=== PATIENT | female | born 1960 | race Caucasian/White ===

== ENCOUNTER → 2016-07-22 | Outpatient (CLI) | payer OTHER ==
--- NOTE | 2016-07-22 13:58 | PCVCIMAG ---
APPROVED REPORT Study performed: 07/22/2016 12:55:14 EXAM: Comprehensive 2D, Doppler, and color-flow Echocardiogram Patient Location: Echo lab Status: stat Indications Dyspnea peripheral edema 2D Dimensions LVEF(%): 21.57 (>50%) IVSd: 6.74 (7-11mm)LVOT Diam: 20.68 (18-24mm) LVDd: 65.66 mm PWd: 8.92 (7-11mm)Ascending Ao: 27.71 (22-36mm) LVDs: 59.02 (25-40mm) Left Atrium: 44.91 (27-40mm) Aortic Root: 23.15 mm LV Single Plane 4CH: 12.42 % LV Single Plane 2CH: 22.33 %Figueroa's LVEF: 17.38 % Biplane EF: 16.9 % Volumes Left Atrial Volume (Systole) Single Plane 4CH: 62.33 mLSingle Plane 2CH: 94.17 mL LA ESV Index: 47.00 mL/m2 Aortic Valve AoV Peak Darren.: 1.15 m/s AO Peak Gr.: 5.64 mmHgLVOT Max P.42 mmHg LVOT Max V: 0.54 m/s JOSUE Vmax: 1.57 cm2 AI Vmax: 4.71 m/s AI [place]: 3.62 m/s2 AI PHT: 394.86 ms Mitral Valve E/A Ratio: 1.9 MV Decel. Time: 105.07 ms MV E Max Darren.: 1.06 m/s MV A Darren.: 0.57 m/s MV Max Darren.: 5.02 m/s MV Mean Darren.: 3.79 m/s IVRT: 72.66 ms Pulmonary Valve PV Peak Darren.: 0.65 m/sPV Peak Gr.: 1.67 mmHg Pulmonary Vein P Vein S: 0.22 m/sP Vein A: 0.36 m/s P Vein D: 0.47 m/sP Vein A Dur.: 83.0 msec P Vein S/D Ratio: 0.47 Tricuspid Valve TR Peak Darren.: 3.21 m/s TR Peak Gr.: 41.14 mmHg TV Vmax: 0.56 m/s Left Ventricle Left ventricle is severely dilated. There is global severe hypokinesis of the left ventricle. There is normal left ventricular wall thickness. Left ventricular ejection fraction is severely decreased. No left ventricle thrombus noted on this study. LVEF is 15-20%. Right Ventricle Right ventricle is mild to moderately dilated. Atria Left atrium is mildly dilated. Right atrium is mildly dilated. Aortic Valve The aortic valve is mildly sclerotic Moderate aortic regurgitation. There is no aortic valvular stenosis. Mitral Valve The mitral valve is normal in structure. Moderately severe mitral regurgitation. No evidence of mitral valve stenosis. Tricuspid Valve The tricuspid valve is normal in structure. Moderate to severe tricuspid regurgitation with a PA pressure of 56mmHg. Pulmonic Valve The pulmonary valve is normal in structure. Mild to moderate pulmonic regurgitation. Great Vessels The aortic root is normal in size. The ascending aorta is normal in size. The inferior vena cava is moderately dilated with no inspiratory collapse. Pericardium Smallr pericardial effusion. Ascites is present. Moderate pleural effusion. <Conclusion> Left ventricular ejection fraction is severely decreased. There is global severe hypokinesis of the left ventricle. LVEF is 15-20%. Right ventricle is mild to moderately dilated. Both atria are dilated The aortic valve is mildly sclerotic. No stenosis. Moderate aortic regurgitation. The mitral valve is normal in structure. Moderately severe mitral regurgitation. Pulmonary arter pressure of 55mmHg Small pericardial effusion
== END | disposition home or self-care (01) ==
LOC: PCVCIMAG 12:45
PROVIDERS: ATTEND Internal Medicine
DX: I08.3 Combined rheumatic disorders of mitral, aortic and tricuspid valves (principal); E78.5 Hyperlipidemia, unspecified; I10 Essential (primary) hypertension
CPT/HCPCS: 36415; 80061; 93005; 93306

== ENCOUNTER → 2016-09-23 | Outpatient (CLI) | payer OTHER ==
--- NOTE | 2016-09-23 17:00 | PCVCINTER ---
APPROVED REPORT Patient Details Patient Status: Out-Patient Room #: 2 The patient is a 55 year-old Female Event Personnel Jolynn Oleary MD, Ayush Jimenez RN, Jessica Camejo RT(R)(), Jihan Stephen RT(R) Risk Factors Arterial HypertensionDysplipidemia (Type: 0), Family History, Last Creatanine 0.9Tobacco History (Never) Previous Procedures/Diagnoses Previous CHF, Hypertension, CHF Procedure Narrative The patient was brought electively to the Cardiac Catheterization Laboratory and was prepped and draped in a sterile manner. The right femoral was infiltrated with 1% Lidocaine subcutaneous anesthesia. A 6 fr sheath was inserted into the right femoral artery. Coronary angiography was performed using coronary diagnostic catheters. The right coronary system was accessed and visualized with a Diagnostic JR4 catheter. The left coronary system was accessed and visualized with a Diagnostic JL4 catheter. The left ventricle was accessed and visualized with a Diagnostic Angled pigtail catheter. Left ventricular/Aortic Valve gradient assessed via catheter pullback. Left ventriculogram was performed in BORGES projection. Closure device was deployed with a 6 Fr Mynx. The patient tolerated the procedure well and there were no complications associated with the procedure. There was no hematoma. Coronary Angiography The patient's coronary anatomy is right dominant. [place] Artery Percent Stenosis Left Main: 0 % Prox LAD: 0 % Mid/Distal LAD: 0 % Circumflex: 0 % RCA: 0 % Ramus: % Left Ventriculography The left ventricle is mildly dilated in size with contractility. The left ventricular ejection fraction is estimated to be 30-35%. Left ventricular wall motion abnormalities are not present. There is no mitral insufficiency. Hemodynamics The aortic pressure is 96/33 mmHg with a mean of 61 mmHg. The left ventricular pressure is 110/42 mmHg with a mean of 53 mmHg. Conclusion 1. Moderate global left ventricular dysfunction. EF 30-35% 2. Normal left main 3. Normal coronary vasculature. Right coronary dominant circulation Recommendations Aggressive Medical Therapy
== END | disposition home or self-care (01) ==
LOC: PCVCINTER 11:03
PROVIDERS: ATTEND Internal Medicine
DX: I11.0 Hypertensive heart disease with heart failure (principal); I50.9 Heart failure, unspecified; E78.5 Hyperlipidemia, unspecified
CPT/HCPCS: 93458; 99152; 99153; C1725; C1760; C1769; C1894

== ENCOUNTER → 2016-11-04 | Outpatient (CLI) | payer OTHER ==
--- NOTE | 2016-11-04 15:10 | PCVCIMAG ---
APPROVED REPORT Study performed: 11/04/2016 13:44:13 EXAM: Comprehensive 2D, Doppler, and color-flow Echocardiogram Patient Location: Echo lab Status: routine BSA: 1.63 HR: 75 bpmBP: 110/70 mmHg Rhythm: NSR Other Information Study Quality: Good Indications Congestive Heart Failure Cardiomyopathy Hypertension/HDD 2D Dimensions LVEF(%): 30.57 (>50%) IVSd: 6.75 (7-11mm)LVOT Diam: 20.34 (18-24mm) LVDd: 62.79 mm PWd: 7.02 (7-11mm) LVDs: 53.55 (25-40mm) Left Atrium: 39.56 (27-40mm) Aortic Root: 22.89 mm LV Single Plane 4CH: 39.73 % LV Single Plane 2CH: 39.98 %Figueroa's LVEF: 39.85 % Volumes Left Atrial Volume (Systole) Single Plane 4CH: 39.64 mLSingle Plane 2CH: 40.68 mL Biplane LA Volume: 42.00 mLLA ESV Index: 26.00 mL/m2 Aortic Valve AoV Peak Darren.: 1.43 m/s AO Peak Gr.: 8.19 mmHgLVOT Max P.25 mmHg LVOT Max V: 0.75 m/s JOSUE Vmax: 1.70 cm2 AI Vmax: 4.49 m/s AI [place]: 2.65 m/s2 AI PHT: 494.82 ms Mitral Valve E/A Ratio: 0.6 MV Decel. Time: 209.11 ms MV E Max Darren.: 0.54 m/s MV A Darren.: 0.88 m/s IVRT: 107.27 ms TDI E/Lateral E': 7.71E/Medial E': 9.00 Medial E' Darren.: 0.06 m/s Lateral E' Darren.: 0.07 m/s Pulmonary Valve PV Peak Darren.: 1.15 m/sPV Peak Gr.: 5.33 mmHg Pulmonary Vein P Vein S: 0.43 m/sP Vein A: 0.30 m/s P Vein D: 0.42 m/sP Vein A Dur.: 86.5 msec P Vein S/D Ratio: 1.02 Tricuspid Valve TR Peak Darren.: 2.34 m/s TR Peak Gr.: 21.84 mmHg TV Vmax: 0.83 m/sPA Pressure: 29.00 mmHg Left Ventricle Left ventricle is moderately dilated. There is normal LV segmental wall motion. There is normal left ventricular wall thickness. Left ventricular systolic function is moderately decreased globally. LVEF is 35-40%. Grade I - abnormal relaxation pattern. Right Ventricle The right ventricle is normal size. The right ventricular systolic function is normal. Atria The left atrium size is normal. The right atrium size is normal. Aortic Valve Mild aortic valve sclerosis. Mild to moderate aortic regurgitation. There is no aortic valvular stenosis. Mitral Valve The mitral valve is normal in structure. Mild to moderate mitral regurgitation. No evidence of mitral valve stenosis. Tricuspid Valve The tricuspid valve is normal in structure. There is no tricuspid valve regurgitation noted. Pulmonic Valve The pulmonary valve is normal in structure. There is no pulmonic valvular regurgitation. Great Vessels The aortic root is normal in size. The ascending aorta is normal in size. IVC is normal in size and collapses with >50% inspiration Pericardium There is no pericardial effusion. There is no pleural effusion. <Conclusion> Left ventricular systolic function is moderately decreased globally. LVEF is 35-40%. Grade I diastolic dysfunction Mild aortic valve sclerosis. Mild to moderate aortic regurgitation. The mitral valve is normal in structure. Mild to moderate mitral regurgitation. Pulmonarhy artery pressure of 25mmHg There is no pericardial effusion.
== END | disposition home or self-care (01) ==
LOC: PCVCIMAG 13:28
PROVIDERS: ATTEND Internal Medicine
DX: I08.0 Rheumatic disorders of both mitral and aortic valves (principal); I11.0 Hypertensive heart disease with heart failure; I50.22 Chronic systolic (congestive) heart failure; I42.9 Cardiomyopathy, unspecified; Z79.899 Other long term (current) drug therapy
CPT/HCPCS: 93005; 93306; G0463

== ENCOUNTER → 2017-08-29 | Outpatient (CLI) | payer OTHER | END | disposition home or self-care (01) | LOC: PCVCIMAG 10:54 | DX: I11.0 Hypertensive heart disease with heart failure (principal); I50.22 Chronic systolic (congestive) heart failure; I42.0 Dilated cardiomyopathy; E78.5 Hyperlipidemia, unspecified; I07.1 Rheumatic tricuspid insufficiency | CPT/HCPCS: 93306 ==

== ENCOUNTER → 2018-08-31 | Outpatient (CLI) | payer OTHER ==
--- NOTE | 2018-08-31 09:47 | PCVCIMAG ---
APPROVED REPORT Study performed: 08/31/2018 08:41:45 EXAM: Comprehensive 2D, Doppler, and color-flow Echocardiogram Patient Location: Echo lab Status: routine BSA: 1.78 HR: 64 bpmBP: 118/82 mmHg Rhythm: NSR Other Information Study Quality: Adequate Risk Factors: Cardiac Risk Factors: HTN Indications Congestive Heart Failure dilated cardiomyopathy 2D Dimensions IVSd: 10.58 (7-11mm) LVDd: 42.99 mm PWd: 9.97 (7-11mm) LVDs: 35.06 (25-40mm) Left Atrium: 39.81 (27-40mm) Aortic Root: 31.41 mm LV Single Plane 4CH: 45.36 % LV Single Plane 2CH: 42.36 % Biplane EF: 43.1 % Volumes Left Atrial Volume (Systole) Single Plane 4CH: 36.29 mLSingle Plane 2CH: 57.86 mL LA ESV Index: 26.00 mL/m2 Aortic Valve AoV Peak Darren.: 1.33 m/s AO Peak Gr.: 7.03 mmHgLVOT Max P.29 mmHg LVOT Max V: 0.76 m/s AI Vmax: 4.72 m/s AI [place]: 3.02 m/s2 AI PHT: 452.86 ms Mitral Valve E/A Ratio: 0.86 MV Decel. Time: 364.79 ms MV E Max Darren.: 0.46 m/s MV A Darren.: 0.53 m/s IVRT: 131.49 ms Pulmonary Valve PV Peak Darren.: 1.06 m/sPV Peak Gr.: 4.47 mmHg Pulmonary Vein P Vein S: 0.19 m/sP Vein A: 0.46 m/s P Vein D: 0.30 m/sP Vein A Dur.: 107.3 msec Tricuspid Valve TR Peak Darren.: 2.54 m/s TR Peak Gr.: 25.81 mmHg TV Vmax: 0.58 m/s Left Ventricle The left ventricle is normal size. There is normal LV segmental wall motion. There is normal left ventricular wall thickness. Left ventricular systolic function is mild to moderately decreased. LVEF is 40-45%. Mild diastolic dysfunction is present (impaired relaxation pattern). Right Ventricle The right ventricle is normal size. The right ventricular systolic function is normal. Atria The left atrium size is normal. The right atrium size is normal. Aortic Valve The aortic valve is normal in structure. Mild aortic regurgitation. There is no aortic valvular stenosis. Mitral Valve The mitral valve is normal in structure. Mild mitral regurgitation. No evidence of mitral valve stenosis. Tricuspid Valve The tricuspid valve is normal in structure. Mild tricuspid regurgitation with PAP of 33 mmHg. Pulmonic Valve The pulmonary valve is normal in structure. Trace pulmonic regurgitation. Great Vessels The aortic root is normal in size. IVC is normal in size and collapses >50% with inspiration. Pericardium There is no pericardial effusion. There is no pleural effusion. <Conclusion> Left ventricular systolic function is mild to moderately decreased. LVEF is 40-45%. Mild diastolic dysfunction The aortic valve is normal in structure. Mild aortic regurgitation. The mitral valve is normal in structure. Mild mitral regurgitation. Mild tricuspid regurgitation with pulmonary artery pressure of 33 mmHg. There is no pericardial effusion.
== END | disposition home or self-care (01) ==
LOC: PCVCIMAG 08:56
PROVIDERS: ATTEND Internal Medicine
DX: I08.3 Combined rheumatic disorders of mitral, aortic and tricuspid valves (principal); E78.5 Hyperlipidemia, unspecified; I10 Essential (primary) hypertension
CPT/HCPCS: 93306